=== PATIENT | male | born 1950 | race Caucasian/White ===

== ENCOUNTER 2019-06-09 09:53 | Day surgery (SDC) | payer OTHER ==
[~2019-06-09] VITALS: Ht 182.9 cm; Wt 105.7 kg
[~2019-06-09 09:53] MED LIST: ALBU83IN INH; EQLTAB93 PO; FLOM0.4C39 PO; LOPR1TAB6 PO; METF-839 PO; NAPR-885 PO; NS 1,000 ML IV ONE; RAMI1CAP26 PO; ROSU40TA4 PO
[2019-06-09] MEDS ORDERED: PROPOFOL 200 MG/20 ML VIAL As Ordered ONE ×2 (11:47→11:53)
--- NOTE | 2019-06-09 12:22 | ROOR ---
Patient Name: Rickey Shepherd Procedure Date: 06/09/2019 11:43 AM Date of : 1950 Age: 68 Room: [facility] Gender: Male Note Status: Finalized Procedure: Total Colonoscopy to Cecum + Cold + Hot Snare Polypectomy + Hemoclips Indications: Screening for colorectal malignant neoplasm Providers: Rakan Segovia MD Referring MD: [facility] [place], [facility], Admin. Requesting Provider: Medicines: Monitored Anesthesia Care Complications: No immediate complications. Procedure: Pre-Anesthesia Assessment: - The heart rate, respiratory rate, oxygen saturations, blood pressure, adequacy of pulmonary ventilation, and response to care were monitored throughout the procedure. The Colonoscope was introduced through the anus and advanced to the cecum, identified by appendiceal orifice and ileocecal valve. The colonoscopy was performed without difficulty. The patient tolerated the procedure well. The quality of the bowel preparation was excellent. Findings: The perianal and digital rectal examinations were normal. Non-bleeding internal hemorrhoids were found during retroflexion. The hemorrhoids were small and Grade I (internal hemorrhoids that do not prolapse). A few small-mouthed diverticula were found in the recto-sigmoid colon. A small polyp was found in the rectum. The polyp was sessile. The polyp was removed with a cold snare. Resection and retrieval were complete. To prevent bleeding after the polypectomy, one hemostatic clip was successfully placed (MR conditional). There was no bleeding at the end of the procedure. A large polyp was found at 20 cm proximal to the anus. The polyp was semi-pedunculated. The polyp was removed with a hot snare. Resection and retrieval were complete. To prevent bleeding after the polypectomy, one hemostatic clip was successfully placed (MR conditional). There was no bleeding at the end of the procedure. A medium polyp was found in the transverse colon. The polyp was sessile. The polyp was removed with a hot snare. Resection and retrieval were complete. To prevent bleeding after the polypectomy, one hemostatic clip was successfully placed. There was no bleeding at the end of the procedure. A small polyp was found in the ascending colon. The polyp was sessile. The polyp was removed with a cold snare. Resection and retrieval were complete. The exam was otherwise without abnormality on direct and retroflexion views. Impression: - Non-bleeding internal hemorrhoids. - Diverticulosis in the recto-sigmoid colon. - One small polyp in the rectum, removed with a cold snare. Resected and retrieved. Clip (MR conditional) was placed. - One large polyp at 20 cm proximal to the anus, removed with a hot snare. Resected and retrieved. Clip (MR conditional) was placed. - One medium polyp in the transverse colon, removed with a hot snare. Resected and retrieved. Clip was placed. - One small polyp in the ascending colon, removed with a cold snare. Resected and retrieved. - The examination was otherwise normal on direct and retroflexion views. - The exam was otherwise normal to the cecum. Recommendation: - Patient has a contact number available for emergencies. The signs and symptoms of potential delayed complications were discussed with the patient. Return to normal activities tomorrow. Written discharge instructions were provided to the patient. - High fiber diet. - Discharge patient to home. - Continue present medications. - Await pathology results. - Telephone GI clinic for pathology results in 1 week. - Repeat colonoscopy in 3 years for surveillance based on pathology results. - Return to referring physician. - The findings and recommendations were discussed with the patient's family. Rakan Segovia MD Rakan Segovia MD 06/09/2019 12:22:01 PM Electronically signed by Rakan Segovia MD Number of Addenda: 0 Note Initiated On: 06/09/2019 11:43 AM Estimated Blood Loss: Estimated blood loss: none.
[2019-06-09 12:40] VITALS: BP 169/70
== END 2019-06-09 12:41 | disposition home or self-care (01) ==
LOC: M OPP 09:53
PROVIDERS: ATTEND Internal Medicine Gastroenterology
DX: Z12.11 Encounter for screening for malignant neoplasm of colon (principal); K64.0 First degree hemorrhoids; K62.1 Rectal polyp; D12.3 Benign neoplasm of transverse colon; D12.2 Benign neoplasm of ascending colon; K57.30 Diverticulosis of large intestine without perforation or abscess without bleeding; Z79.899 Other long term (current) drug therapy; Z79.84 Long term (current) use of oral hypoglycemic drugs; Z88.2 Allergy status to sulfonamides

== ENCOUNTER → 2023-09-03 | Outpatient (CLI) | payer OTHER ==
[~2023-09-03] MED LIST changes: +ALBU2.5V10 INH; -ALBU83IN INH; -NS 1,000 ML IV ONE
== END ==
LOC: M WUC 15:14
PROVIDERS: ATTEND Nurse Practitioner Family
DX: J20.9 Acute bronchitis, unspecified (principal)

== ENCOUNTER 2023-12-10 21:06 | Emergency (ER) | payer OTHER, MEDICARE ==
[~2023-12-10] VITALS: Ht 182.9 cm; Wt 102.2 kg
[2023-12-10 21:10] VITALS: BP 162/87; TEMP 97.8; O2SAT 94
== END 2023-12-10 22:30 | disposition home or self-care (01) ==
LOC: M ED 21:06
DX: T83.098A Other mechanical complication of other urinary catheter, initial encounter (principal); R31.9 Hematuria, unspecified; Z79.52 Long term (current) use of systemic steroids; Z79.811 Long term (current) use of aromatase inhibitors; Z79.899 Other long term (current) drug therapy; Z88.2 Allergy status to sulfonamides

== ENCOUNTER 2024-03-31 09:23 | Day surgery (SDC) | payer OTHER, MEDICARE ==
[~2024-03-31] VITALS: Ht 182.9 cm; Wt 104.3 kg
[~2024-03-31 09:23] MED LIST changes: +RAMI10CA64 PO; -RAMI1CAP26 PO; -ROSU40TA4 PO; +ROSU40TA63 PO
[2024-03-31] MEDS: NS 1,000 ML IV ONE (09:59)
[2024-03-31] MEDS ORDERED: fentaNYL 100 MCG/2 ML INJECTION As Ordered ONE (11:11)
[2024-03-31 11:44] VITALS: TEMP 96.6
[2024-03-31 12:08] VITALS: BP 158/72; O2SAT 95
== END 2024-03-31 12:22 | disposition home or self-care (01) ==
LOC: M OPP 09:23
PROVIDERS: ATTEND Internal Medicine Gastroenterology
DX: Z12.11 Encounter for screening for malignant neoplasm of colon (principal); K63.5 Polyp of colon; K20.90 Esophagitis, unspecified without bleeding; K64.0 First degree hemorrhoids; R12 Heartburn; K57.30 Diverticulosis of large intestine without perforation or abscess without bleeding; Z86.010 Personal history of colon polyps; Z87.19 Personal history of other diseases of the digestive system; K22.89 Other specified disease of esophagus; I10 Essential (primary) hypertension; J44.9 Chronic obstructive pulmonary disease, unspecified; E11.9 Type 2 diabetes mellitus without complications; E78.00 Pure hypercholesterolemia, unspecified; Z79.84 Long term (current) use of oral hypoglycemic drugs; Z79.899 Other long term (current) drug therapy; Z88.2 Allergy status to sulfonamides
CPT/HCPCS: 43239; 45380; 88305; J3010

== ENCOUNTER 2024-09-07 06:11 | Day surgery (SDC) | payer MEDICARE, OTHER ==
[~2024-09-07] VITALS: Ht 182.9 cm; Wt 97.5 kg
[~2024-09-07 06:11] MED LIST changes: +CELE1CAP4 PO; +EZET10TA58 PO; +FLON1SPR; +METF-838 PO; +METO25TA4 PO; +PRAZ2CAP PO; -ROSU40TA63 PO; +ROSU40TA81 PO; +SPIR1CAP INH
[2024-09-07] MEDS: LR 1,000 ML IV SCH (07:03)
[2024-09-07] MEDS: ceFAZolin SOD 2 GM in IV 1 EA IV ONE (07:37)
[2024-09-07] MEDS: INDOCYANINE GREEN 25MG VIAL (IC-GREEN) IV ONE (07:37)
[2024-09-07] MEDS: HEPARIN SOD (PORCINE) 5000UNITS/ML 1ML VIAL/SYRINGE SQ ONE (07:52)
[2024-09-07] MEDS ORDERED: KETOROLAC 60MG 2ML VIAL As Ordered ONE (08:15)
[2024-09-07] MEDS ORDERED: LIDOCAINE 2% 100MG/5ML SDV (FOR ANES.) As Ordered ONE (08:15)
[2024-09-07] MEDS ORDERED: ONDANSETRON 4MG 2ML VIAL As Ordered ONE (08:15)
[2024-09-07] MEDS ORDERED: ROCURONIUM BROMIDE 50MG/5ML VIAL As Ordered ONE (08:15)
[2024-09-07] MEDS ORDERED: METOCLOPRAMIDE INJ 10MG/2ML VIAL As Ordered ONE (08:15)
[2024-09-07] MEDS ORDERED: dexmedeTOMIDine (4MCG/ML)200MCG/50ML BTL (PRECEDEX) As Ordered ONE (08:15)
[2024-09-07] MEDS ORDERED: fentaNYL 250 MCG/5 ML INJECTION As Ordered ONE (08:15)
[2024-09-07] MEDS ORDERED: propofoL 200 MG/20 ML VIAL As Ordered ONE (08:15)
[2024-09-07] MEDS ORDERED: ACETAMINOPHEN 1000MG 100ML IV BAG As Ordered ONE (08:15)
[2024-09-07] MEDS ORDERED: INDOCYANINE GREEN 25MG VIAL (IC-GREEN) As Ordered ONE (08:15)
[2024-09-07] MEDS ORDERED: MIDAZOLAM INJ 2MG/2ML VIAL As Ordered ONE (08:15)
[2024-09-07] MEDS ORDERED: LABETALOL 100MG/20ML VIAL As Ordered ONE (08:15)
[2024-09-07] MEDS ORDERED: SUGAMMADEX SODIUM 500 MG/5 ML VIAL (BRIDION) As Ordered ONE (08:15)
[2024-09-07] MEDS ORDERED: ALBUTEROL 6.7GM INHALER **FOR ANES. CART/OMNICELL ONLY As Ordered ONE (08:36)
[2024-09-07] MEDS ORDERED: oxyCODONE 5MG TAB PO PRN (08:45)
[2024-09-07] MEDS ORDERED: MORPHINE 2 MG/ML 1ML VIAL IV PRN (08:45)
[2024-09-07] MEDS ORDERED: fentaNYL 100 MCG/2 ML INJECTION IV PRN (08:45)
[2024-09-07 09:50] VITALS: TEMP 97.4
[2024-09-07] MEDS: ONDANSETRON 4MG 2ML VIAL IV PRN (10:32)
[2024-09-07 11:16] VITALS: BP 157/74; O2SAT 96
== END 2024-09-07 11:30 | disposition home or self-care (01) ==
LOC: M SDC 06:11
PROVIDERS: ATTEND Surgery
DX: K80.20 Calculus of gallbladder without cholecystitis without obstruction (principal); E11.9 Type 2 diabetes mellitus without complications; I10 Essential (primary) hypertension; E78.5 Hyperlipidemia, unspecified; F41.9 Anxiety disorder, unspecified; J44.9 Chronic obstructive pulmonary disease, unspecified; N40.0 Benign prostatic hyperplasia without lower urinary tract symptoms; F12.10 Cannabis abuse, uncomplicated; Z79.899 Other long term (current) drug therapy; Z88.2 Allergy status to sulfonamides; Z79.84 Long term (current) use of oral hypoglycemic drugs; Z79.51 Long term (current) use of inhaled steroids
CPT/HCPCS: 47562; 88304; J0131; J0665; J0690; J1100; J1885; J1920; J2250; J2405; J2765; J3010; Q9968; S2900

== ENCOUNTER → 2025-02-15 | Outpatient (CLI) | payer MEDICARE, OTHER | LOC: M WUC 15:17 | PROVIDERS: ATTEND Nurse Practitioner Family | DX: R05.9 Cough, unspecified (principal) ==